=== PATIENT | female | born 1965 | race African-American/Black ===

== ENCOUNTER 2016-10-06 12:05 | Emergency (ER) | payer OTHER ==
[~2016-10-06] VITALS: Ht 175.3 cm; Wt 112.0 kg
[~2016-10-06 12:05] MED LIST: ANAPROX DS550 M1 PO; CLEOCIN300 MG PO; DUONEB 2.5-0.5 M3 ML IH; HYDROCODON-ACE1 EAC7 PO; KEFLEX500 MG PO; LISINOPRIL10 MG PO; LOSARTAN POTASS50 MG PO; MACROBID100 MG PO; MOBIC15 MG PO; MOBIC7.5 MG PO; NORCO 5/3251 TABLET PO; PHENERGAN-CODE120 ML PO; PREDNISONE20 MG PO; SEROQUEL200 MG PO; TEGRETOL200 MG PO; ULTRAM50 MG PO; VENTOLIN HFA18 GM IH; ZOFRAN4 MG PO; ZOLOFT25 MG PO
[2016-10-06] MEDS ORDERED: FIORICET 50-301 EACH PO (16:08)
[2016-10-06 16:23] VITALS: BP 137/74
== END 2016-10-06 16:23 | disposition home or self-care (01) ==
LOC: EME 12:05
DX: G43.909 Migraine, unspecified, not intractable, without status migrainosus (principal); J45.909 Unspecified asthma, uncomplicated; J44.9 Chronic obstructive pulmonary disease, unspecified; I10 Essential (primary) hypertension; F17.200 Nicotine dependence, unspecified, uncomplicated
CPT/HCPCS: 71020; 99281; 99284; J1885

== ENCOUNTER 2016-11-06 08:56 | Emergency (ER) | payer OTHER ==
[~2016-11-06] VITALS: Ht 175.3 cm; Wt 111.8 kg
[~2016-11-06 08:56] MED LIST changes: +FIORICET 50-301 EACH PO
[2016-11-06 10:10] LABS: INFLUENZA A VIRAL ANTIGEN NEGATIVE; INFLUENZA B VIRAL ANTIGEN NEGATIVE
[2016-11-06] MEDS ORDERED: ZITHROMAX Z-PA250 MG PO (10:46)
[2016-11-06] MEDS ORDERED: PREDNISONE50 MG PO (10:47)
[2016-11-06 10:53] VITALS: BP 140/82
== END 2016-11-06 10:54 | disposition home or self-care (01) ==
LOC: EME 08:56
PROVIDERS: Emergency Medicine
DX: J44.0 Chronic obstructive pulmonary disease with (acute) lower respiratory infection (principal); J20.9 Acute bronchitis, unspecified; J44.1 Chronic obstructive pulmonary disease with (acute) exacerbation; J45.909 Unspecified asthma, uncomplicated; I10 Essential (primary) hypertension; F17.200 Nicotine dependence, unspecified, uncomplicated
CPT/HCPCS: 71020; 87502; 93005; 94640; 99281; 99284; J7512

== ENCOUNTER → 2016-12-09 | Outpatient (CLI) | payer OTHER ==
[~2016-12-09] MED LIST changes: +24 HOUR ALLER15.8 ML BOTH NARES; +COZAAR100 MG PO; +DERMAWERX SDS1 EACH TP; +DITROPAN5 MG PO; +MOTRIN800 MG PO; +NEURONTIN300 MG PO; +PERCOCET 5/31 TABLET PO; +PREDNISONE50 MG PO; +ZITHROMAX Z-PA250 MG PO; +ZOLOFT100 MG PO
== END | disposition home or self-care (01) ==
LOC: CDC 08:22
DX: Z01.810 Encounter for preprocedural cardiovascular examination (principal); K60.2 Anal fissure, unspecified; K64.9 Unspecified hemorrhoids
CPT/HCPCS: 93000

== ENCOUNTER 2016-12-19 07:58 | Day surgery (SDC) | payer OTHER ==
[~2016-12-19] VITALS: Ht 175.3 cm; Wt 112.7 kg
[~2016-12-19 07:58] MED LIST changes: -PERCOCET 5/31 TABLET PO
[2016-12-19 08:30] VITALS: BP 126/83
[2016-12-19] MEDS ORDERED: PERCOCET 5/31 TABLET PO (14:12)
[2016-12-19 15:25] VITALS: BP 67/48
[2016-12-19 18:49] LABS: HEMATOCRIT 30.3 % (36.0-46.0)
[2016-12-19 18:50] LABS: MCV 94.1 FL (83-99)
[2016-12-19 19:15] VITALS: BP 114/79
[2016-12-19 19:45] VITALS: BP 123/74
[2016-12-22 10:29] LABS: INTERNAL CONTROL VALID? YES
== END 2016-12-19 19:58 | disposition home or self-care (01) ==
LOC: SDC
PROVIDERS: Surgery
DX: K62.4 Stenosis of anus and rectum (principal); K64.8 Other hemorrhoids; K60.2 Anal fissure, unspecified; I95.81 Postprocedural hypotension; K91.870 Postprocedural hematoma of a digestive system organ or structure following a digestive system procedure; Z68.36 Body mass index [BMI] 36.0-36.9, adult; I10 Essential (primary) hypertension; J45.909 Unspecified asthma, uncomplicated; M19.90 Unspecified osteoarthritis, unspecified site; Z82.49 Family history of ischemic heart disease and other diseases of the circulatory system; F17.200 Nicotine dependence, unspecified, uncomplicated
CPT/HCPCS: 84703; 85014; 85018; 85027; 88304; J0690; J1100; J1170; J2175; J2250; J2405; J3010

== ENCOUNTER 2017-03-30 05:35 | Inpatient (IN) | payer OTHER ==
[~2017-03-30] VITALS: Ht 175.3 cm; Wt 111.5 kg
[~2017-03-30 05:35] MED LIST changes: +AMBIEN10 MG PO; +LAMICTAL100 MG PO; +LAMICTAL25 MG PO; +OXAYDO5 MG PO; +PERCOCET 5/31 TABLET PO; +QVAR 80 MCG IN7.3 GM IH; +VOLTAREN50 MG PO; +ZANAFLEX4 M1 PO
[2017-03-30 07:02] VITALS: BP 172/86
[2017-03-30 13:50] VITALS: BP 151/76
[2017-03-30 15:43] VITALS: BP 143/71
[2017-03-30 18:30] VITALS: BP 163/76
[2017-03-30 20:07] LABS: HEMATOCRIT 31.7 % (36.0-46.0); MCV 88.3 FL (83-99)
[2017-03-30 20:21] VITALS: BP 136/64
[2017-03-31 00:28] VITALS: BP 132/80
[2017-03-31 04:06] VITALS: BP 120/65
[2017-03-31 07:37] LABS: ANION GAP 7 MEQ/L (2-14); CHLORIDE 107 MEQ/L (99-109); GFR ESTIMATE (CALCULATED) > 59 mL/min/; GLUCOSE 102 mg/dL (70-99); POTASSIUM 3.9 MEQ/L (3.7-5.4); SAMPLE HEMOLYSIS CHECK 0; SAMPLE ICTERIC CHECK 0; SAMPLE LIPEMIA CHECK 0; SODIUM 140 MEQ/L (136-147); UREA NITROGEN (BUN) 11 mg/dL (9-23)
[2017-03-31 07:38] VITALS: BP 117/60
[2017-03-31 11:43] VITALS: BP 131/77
[2017-03-31 16:02] VITALS: BP 116/65
[2017-03-31 20:00] VITALS: BP 115/66
[2017-04-01 00:30] VITALS: BP 131/64
[2017-04-01 04:30] VITALS: BP 157/84
[2017-04-01 08:00] VITALS: BP 184/86
[2017-04-01] MEDS ORDERED: OXYCODONE HCL5 MG PO (10:28)
[2017-04-01] MEDS ORDERED: ELIQUIS2.5 MG PO (10:28)
[2017-04-01 11:44] VITALS: BP 163/83
== END 2017-04-01 15:38 | disposition home health service (06) | DRG 470 ==
LOC: 2SOUTH → 3WEST 05:35 → 2SOUTH 05:35 → 3WEST 13:33 → 2SOUTH 15:15 → 3WEST 04-01 15:38
PROVIDERS: Orthopaedic Surgery
PROC: 0SRD0J9 Replacement of Left Knee Joint with Synthetic Substitute, Cemented, Open Approach (ICD-10-PCS; principal; 2017-03-30)
DX: M17.12 Unilateral primary osteoarthritis, left knee (principal)
CPT/HCPCS: 80048; 85014; 85018; 94640; 94640 76; 99202; C1713; J0360; J0690; J1885; J2175; J2250; J7050; J7120; L1820; S0020